=== PATIENT | female | born 1945 | race Caucasian/White ===

== ENCOUNTER 2017-07-28 07:03 | Day surgery (SDC) | payer OTHER ==
[~2017-07-28] VITALS: Ht 149.9 cm; Wt 44.0 kg
[~2017-07-28 07:03] MED LIST: SODIUM CHLORIDE 0.9% 1,000 ML IV ONE
[2017-07-28] MEDS ORDERED: BENZOCAINE 20% 50 MCG/SPRAY 57 GM TP ONE (07:04)
[2017-07-28] MEDS ORDERED: LIDOCAINE HCL 2% 30 ML JELLY TP ONE (07:04)
[2017-07-28] MEDS ORDERED: LIDOCAINE HCL 4% 50 ML SOLUTION TP ONE (07:04)
[2017-07-28] MEDS ORDERED: SODIUM CHLORIDE 0.9% 1,000 ML IV ONE (07:30)
[2017-07-28] MEDS ORDERED: ACET-48 PO (07:52)
[2017-07-28] MEDS ORDERED: BECL10.6 IH (07:52)
[2017-07-28] MEDS ORDERED: ESCI10TA PO (07:52)
[2017-07-28] MEDS ORDERED: TRAM50TA4 PO (07:52)
[2017-07-28] MEDS ORDERED: ALBU8.5H8 IH (07:52)
[2017-07-28] MEDS ORDERED: MIDAZOLAM HCL 2 MG/2 ML VIAL ONE (08:10)
[2017-07-28] MEDS ORDERED: FentaNYL CITRATE-PF 100 MCG/2 ML VIAL ONE (08:10)
[2017-07-28] MEDS ORDERED: MethylPREDNISolone SOD SUCC 125 MG/2 ML VIAL IVP ONE (09:45)
[2017-07-28] MEDS ORDERED: MethylPREDNISolone SOD SUCC 125 MG/2 ML VIAL ONE (09:54)
[2017-07-28] MEDS ORDERED: OXYGEN THERAPY IH SCH (20:00)
== END 2017-07-28 11:00 | disposition home or self-care (01) ==
LOC: SURGERY 07:03
PROVIDERS: ATTEND Internal Medicine Critical Care Medicine
DX: J38.4 Edema of larynx (principal); B37.0 Candidal stomatitis; I11.9 Hypertensive heart disease without heart failure; Z79.891 Long term (current) use of opiate analgesic; Z98.890 Other specified postprocedural states; Z79.899 Other long term (current) drug therapy
CPT/HCPCS: 31623; 31624; 71045; 87015; 87070; 87101; 87147; 87205; 87206; 87220; 88108; 88312; J2250; J2930; J3010; J7030